=== PATIENT | male | born 1975 | race American Indian/Alaskan Native ===

== ENCOUNTER 2019-06-27 14:24 | Observation (INO) | payer SELFPAY ==
[~2019-06-27] VITALS: Ht 177.8 cm; Wt 85.4 kg
[2019-06-27] MEDS ORDERED: SODIUM CHLORIDE 0.9% 1000ML 1,000 ML IV STA (14:40)
[2019-06-27] MEDS ORDERED: PANTOPRAZOLE 40 MG 10ML VIAL IV STA (14:40)
[2019-06-27 14:58] LABS: BASOPHILS % 0.3 % (0.0-1.0); EOSINOPHILS # (AUTO) 0.1 (0.0-0.4); EOSINOPHILS % 0.6 % (0.0-6.0); HEMATOCRIT 41.1 % (38.2-49.6); HEMOGLOBIN 14.3 g/dL (14.0-18.0); LYMPHOCYTES # (AUTO) 2.7 (1.0-3.2); LYMPHOCYTES % 23.2 % (18.0-39.1); MEAN CORPUSCULAR HEMOGLOBIN 30.4 pg (28-32); MEAN CORPUSCULAR HGB CONC 34.8 g/dL (31-35); MEAN CORPUSCULAR VOLUME 87.4 fL (81-99); MONOCYTES # (AUTO) 0.8 (0.2-0.8); MONOCYTES % 7.1 % (4.4-11.3); NEUTROPHILS # (AUTO) 8.1 (2.1-6.9); NEUTROPHILS % 68.5 % (38.7-80.0); PLATELET COUNT 296 x10e3/uL (140-360); RED CELL DISTRIBUTION WIDTH 11.9 % (11.7-14.4)
[2019-06-27 15:12] LABS: INR 1.03; PROTHROMBIN TIME 14.1 seconds (11.9-14.5)
[2019-06-27 15:24] LABS: ALANINE AMINOTRANSFERASE 22 IU/L (0-55); ALBUMIN 3.8 g/dL (3.5-5.0); ALBUMIN/GLOBULIN RATIO 1.1 (0.8-2.0); ALKALINE PHOSPHATASE 93 IU/L (40-150); ANION GAP 16.7 mmol/L (8-16); BLOOD UREA NITROGEN 13 mg/dL (7-26); BUN/CREATININE RATIO 14 (6-25); CALCIUM 9.7 mg/dL (8.4-10.2); CARBON DIOXIDE 23 mmol/L (22-29); CHLORIDE 101 mmol/L (98-107); CREATINE KINASE 17 IU/L (30-200); EST GLOMERULAR FILTRATION RATE > 60 ML/MIN (60-); GLUCOSE 163 mg/dL (74-118); LIPASE 12 U/L (8-78); POTASSIUM 3.7 mmol/L (3.5-5.1); SODIUM 137 mmol/L (136-145)
[2019-06-27 15:25] LABS: BILIRUBIN,URINE SMALL (NEGATIVE); CLARITY,URINE CLEAR (CLEAR); COLOR,URINE YELLOW (YELLOW); KETONES,URINE 2+ (NEGATIVE); LEUKOCYTE ESTERASE ,URINE NEGATIVE (NEGATIVE); NITRITE,URINE NEGATIVE (NEGATIVE); PROTEIN,URINE DIPSTICK 2+ (NEGATIVE); URINE UROBILINOGEN 1 mg/dL (0.2 - 1)
[2019-06-27 15:36] LABS: RBC,URINE 0-5 /HPF (0-5)
[2019-06-27 15:37] LABS: BACTERIA,URINE FEW /HPF; EPITHELIAL CELLS,URINE FEW /LPF; HYALINE CASTS 0-1 (0-1); MUCUS,URINE FEW (RARE)
--- OUTSIDE RECORDS SUMMARY | 2019-06-27 15:52 | XMS REPORT ---
Author Author [facility] Address Unknown Phone Unavailable Care Team Providers Care Post Acute Care Nurse Practitioner Name Role Phone Unavailable Unavailable Problems This patient has no known problems. Allergies, Adverse Reactions, Alerts This patient has no known allergies or adverse reactions. Medications This patient has no known medications. Encounters Start Date/Time End Date/Time Encounter Type Admission Type Attending [facility] Care [facility] Care Department Encounter ID 2019-06-15 18:24:00 2019-06-15 18:24:00 Emergency E [facility] [id number] 2019-06-13 15:36:00 2019-06-13 15:36:00 Emergency E [id number]
[2019-06-27 15:53] LABS: AMPHETAMINES SCREEN,URINE NEGATIVE (NEGATIVE); BENZODIAZEPINES SCREEN,URINE NEGATIVE (NEGATIVE); PHENCYCLIDINE SCREEN,URINE NEGATIVE (NEGATIVE)
[2019-06-27] MEDS ORDERED: IOPAMIDOL 370 MG/ML 200 ML INFUS..BTL INJ ONE (17:20)
[2019-06-27] MEDS ORDERED: SODIUM CHLORIDE 0.9% 50ML 50 ML ONE (17:20)
--- NOTE | 2019-06-27 17:29 | Diagnostic Imaging Report ---
EXAM: CT Abdomen and Pelvis WITH intravenous contrast INDICATION: Abdominal pain, epigastric pain COMPARISON: None. TECHNIQUE: Abdomen and pelvis were scanned utilizing a multidetector helical scanner from the lung base to the pubic symphysis after administration of IV contrast. Coronal and sagittal reformations were obtained. Routine protocol was performed. Scan was performed during portal venous phase. IV CONTRAST: 100mL of Isovue 370 ORAL CONTRAST: Water RADIATION DOSE: Total DLP: 486.2 mGy*cm Dose modulation, iterative reconstruction, and/or weight based adjustment of the mA/kV was utilized to reduce the radiation dose to as low as reasonably achievable. FINDINGS: LOWER THORAX: Mild coronary artery atherosclerotic calcifications. HEPATOBILIARY: No focal liver lesion. No biliary ductal dilation. Unremarkable gallbladder. SPLEEN: No splenomegaly. PANCREAS: No focal masses or ductal dilatation. ADRENALS: No adrenal nodules. KIDNEYS/URETERS: No hydronephrosis, stones, or solid mass lesions. PELVIC ORGANS/BLADDER: Unremarkable. PERITONEUM / RETROPERITONEUM: No free air or fluid. LYMPH NODES: No lymphadenopathy. VESSELS: Mild scattered atherosclerotic calcifications of the nonaneurysmal bowel aorta and major branches. GI TRACT: No distention or wall thickening. BONES AND SOFT TISSUES: No acute osseous injury. No suspicious lytic or blastic lesions. IMPRESSION: No acute findings in the abdomen or pelvis. Signed by: Johann Leyva MD on 06/27/2019 5:26 PM
[2019-06-27] MEDS: SODIUM CHLORIDE 0.9% 1000ML 1,000 ML IV SCH ×2 (17:47→22:30)
[2019-06-27] MEDS ORDERED: ACETAMINOPHEN 325 MG TAB PO PRN (21:00)
[2019-06-27] MEDS ORDERED: DEXTROSE 50% SYRINGE 50 ML IV PRN (21:00)
[2019-06-27] MEDS ORDERED: PROMETHAZINE HC25 M1 PO (21:31)
[2019-06-27] MEDS ORDERED: ONDANSETRON HCL4 MG SL (21:31)
[2019-06-27] MEDS ORDERED: PANTOPRAZOLE SO40 MG PO (21:31)
[2019-06-27] MEDS ORDERED: FAMOTIDINE20 MG PO (21:31)
[2019-06-27] MEDS ORDERED: DICYCLOMINE HCL20 MG PO (21:31)
[2019-06-27] MEDS ORDERED: DICYCLOMINE HCL 20 MG TAB PO PRN (21:45)
[2019-06-27] MEDS ORDERED: ONDANSETRON HCL 4 MG ORAL DISINTEGRATING TAB SL PRN (21:45)
[2019-06-27] MEDS ORDERED: PROMETHAZINE HCL 25 MG TAB PO PRN (21:45)
[2019-06-27] MEDS: INSULIN REGULAR, HUMAN 100 UNIT/1 ML 3ML VIAL SQ SCH (22:25)
[2019-06-27] MEDS: LEVOFLOXACIN 500MG/D5W 100ML 100 ML IV SCH (22:30)
[2019-06-27] MEDS: FAMOTIDINE 20 MG TAB PO SCH (22:30)
[2019-06-28] VITALS (11 sets, daily range): BP systolic 145–170; BP diastolic 93–107
--- NOTE | 2019-06-28 00:01 | NUR ---
PATIENT ARRIVED VIA GURNEY TO FLOOR, AOX4, AT BEDSIDE, ORIENTED, STATED PREVIOUS FALL WITHIN 30 DAYS, FALL PRECAUTION IN PLACE, BED ALARM ACTIVATED, PATIENT ADVISED TO CALL DONT FALL, ORIENTED TO ROOM, STAFF AND PROCEDURES, CALL LIGHT WITHIN REACH
--- NOTE | 2019-06-28 02:00 | NUR ---
TELEMETRY REPORTING SINUS RHYTHM WITH PVC'S NOTED
[2019-06-28 05:35] LABS: BASOPHILS % 0.3 % (0.0-1.0); EOSINOPHILS # (AUTO) 0.1 (0.0-0.4); EOSINOPHILS % 0.9 % (0.0-6.0); HEMATOCRIT 39.8 % (38.2-49.6); HEMOGLOBIN 13.5 g/dL (14.0-18.0); LYMPHOCYTES # (AUTO) 3.1 (1.0-3.2); LYMPHOCYTES % 26.8 % (18.0-39.1); MEAN CORPUSCULAR HEMOGLOBIN 29.7 pg (28-32); MEAN CORPUSCULAR HGB CONC 33.9 g/dL (31-35); MEAN CORPUSCULAR VOLUME 87.7 fL (81-99); MONOCYTES % 8.4 % (4.4-11.3); NEUTROPHILS # (AUTO) 7.2 (2.1-6.9); NEUTROPHILS % 63.2 % (38.7-80.0); PLATELET COUNT 250 x10e3/uL (140-360); RED BLOOD COUNT 4.54 x10e6/uL (4.3-5.7)
[2019-06-28 06:00] LABS: CREATINE KINASE 18 IU/L (30-200)
--- NOTE | 2019-06-28 07:00 | NUR ---
SBAR report given to ruthie HAYWARD PATIENT SEEN SLEEPING, EASILY AWAKEN NO DISTRESS NOTED, WALKING ROUNDS COMPLETED
[2019-06-28] MEDS: INSULIN REGULAR, HUMAN 100 UNIT/1 ML 3ML VIAL SQ SCH ×4 (07:30→21:00)
[2019-06-28] MEDS: SODIUM CHLORIDE 0.9% 1000ML 1,000 ML IV SCH ×3 (08:32→23:32)
[2019-06-28] MEDS: FAMOTIDINE 20 MG TAB PO SCH ×2 (08:35→16:48)
[2019-06-28] MEDS: PANTOPRAZOLE SOD 40 MG TABEC PO SCH (08:35)
--- NOTE | 2019-06-28 11:53 | NUR ---
GAVE PACKET OF INFORMATION WITH COMM[facility]ITY [employer] FOR ASSISTANCE WITH LOW TO NO INCOME TO PATIENT. RESOURCES THAT PATIENT MAY BE ABLE TO FOLLOW UP UPON DISCHARGE. PT EDUCATED ON EACH RESOURCE AND UNDERSTANDING HOW TO FOLLOW UP TO SEE IF QUALIFIED FOR EACH RESOURCE.
--- NOTE | 2019-06-28 14:50 | NUR ---
Nutrition Screen Note RD Recommendation for Physician: - Add 1800 ADA to current diet Plan of Care: RD following, monitoring for tolerance and adequacy Nutrition reason for involvement: Nutrition Risk Trigger- MST2 Primary Diagnose(s): weakness, frequent PAC's PMH: No H&P available, pt reports being diabetic Ht: 70 in Wt: 187.25 lb, 191 lb 06/28 BMI: 26.9 kg/m2 IBW: [address] Assessment: (06/28) 44 YOM admitted for weakness and frequent PAC's. Pt seen today per MST screen. 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 Pt reports tolerating breakfast with some nausea, denies V/C/D. Pt reports UBW of 205# 2 months ago, pt weighed 191# at time of visit- no significant change noted. Skin intact. Chart reviewed. Labs and meds reviewed, currently on insulin. Will continue to monitor. Current Diet: Cardiac Malnutrition Evaluation (06/28/19) The patient does not meet criteria for a specified degree of malnutrition at this time. Will re-evaluate at follow-up as appropriate. Energy intake: <75% of estimated energy requirements for >7 days- decreased intake x 2 weeks Weight loss: Does not meet criteria- minor wt changes. Fat loss: none, ample skinfold thickness Muscle loss: none, shoulder round Supporting Evidence: Fluid accumulation: none Functional Status: not assessed Diet Education Needs Assessment: Diet education not indicated. Diet tolerance: tolerating po with some nausea Nutrition Care Level: low Signed: Katya Estrada RD, LD, [facility]
[2019-06-28 15:17] LABS: CREATINE KINASE MB 0.7 ng/mL (0-5.0)
--- NOTE | 2019-06-28 19:30 | NUR ---
BSSR RECEIVED FROM SPARKLE HAYWARD, PATIENT AOX3, NO DISTRESS NOTED, PATIENT SEEN LYING IN BED, BED IN LOWEST POSITION, AT BEDSIDE, NO C/O PAIN OR DISCOMFORT, REMAIN ON TELEMETRY FOR SAFETY, TELEMETRY REPORTING SR WITH PVC'S, CALL LIGHT WITHIN REACH
[2019-06-28] MEDS: LEVOFLOXACIN 500MG/D5W 100ML 100 ML IV SCH (21:36)
--- NOTE | 2019-06-28 21:40 | NUR ---
IV ABT THERAPY CONTINUED, IV SITE INTACT, PATENT, PATIENT TOLERATED WELL, NO REACTION NOTED
--- NOTE | 2019-06-28 23:03 | Consultation ---
DATE OF CONSULTATION: 06/28/2019 Cardiology Consult Note REASON FOR CONSULT: PVCs, generalized weakness. CHIEF COMPLAINT: Generalized weakness, nausea, vomiting. HISTORY OF PRESENT ILLNESS: The patient is a 44-year-old man, no prior history of heart issues, who presents with complaints of feeling weak, tired, and having nausea and vomiting. Denies any chest pain or shortness of breath, orthopnea, PND. REVIEW OF SYSTEMS: As above, otherwise negative. SOCIAL HISTORY: Does not smoke, drink, or abuse drugs. FAMILY HISTORY: Noncontributory. OUTPATIENT MEDICATIONS: Reviewed. ALLERGIES: DATA REVIEWED. NO KNOWN DRUG ALLERGIES. OBJECTIVE: VITAL SIGNS: Temperature afebrile, pulse 87, respiratory rate 14, blood pressure 153/99, and 98% on room air. GENERAL: A well developed, well nourished, in no acute distress. CARDIOVASCULAR: Regular rate and rhythm. No murmurs, rubs, or gallops. LUNGS: Clear to auscultation anteriorly. ABDOMEN: Soft, nontender, nondistended. NEURO AND PSYCH: Alert and oriented to person, place, and time. Normal affect. INPATIENT MEDICATIONS: Reviewed. LABORATORY DATA: Reviewed. Troponins negative x3. IMAGING DATA: Reviewed. CT scan of abdomen and pelvis shows no acute finding. TELEMETRY DATA: Reviewed, shows normal sinus rhythm with occasional PVCs. Echocardiogram reviewed shows normal LV function. No significant valvular abnormalities. ASSESSMENT AND PLAN: 1. Generalized weakness. 2. Premature ventricular contractions and premature atrial contractions. PLAN: From a cardiovascular standpoint, the patient is stable. He had some PACs and PVCs; however, this is not significant clinically and does not need to be treated and especially in the setting of normal LV function. Treat nausea and vomiting per primary team. We will continue to monitor on telemetry. The patient is okay to be discharged from a cardiovascular standpoint with palpation. Follow up as needed. MD MARIELENA Kaufman/HEMANTH /[id number]
[2019-06-29] VITALS: BP 142/96
[2019-06-29 00:20] VITALS: BP 142/96
[2019-06-29 04:00] VITALS: BP 156/80
[2019-06-29 05:12] VITALS: BP 156/80
--- NOTE | 2019-06-29 06:59 | NUR ---
BSSR GIVEN TO RN SPARKLE NO DISTRESS NOTED, PATIENT SEEN SLEEPING, CALL LIGHT WITHIN REACH
[2019-06-29 07:26] VITALS: BP 136/82
[2019-06-29 07:27] VITALS: BP 136/82
[2019-06-29] MEDS: INSULIN REGULAR, HUMAN 100 UNIT/1 ML 3ML VIAL SQ SCH (07:30)
[2019-06-29] MEDS: PANTOPRAZOLE SOD 40 MG TABEC PO SCH (08:26)
[2019-06-29] MEDS: SODIUM CHLORIDE 0.9% 1000ML 1,000 ML IV SCH (08:26)
[2019-06-29] MEDS: FAMOTIDINE 20 MG TAB PO SCH (08:26)
== END 2019-06-29 12:00 | disposition home or self-care (01) ==
LOC: ER 14:24 → ERHOLD 15:50 → IMCU 06-28 00:01
DX: R53.1 Weakness (principal); R10.11 Right upper quadrant pain; I49.1 Atrial premature depolarization; I49.3 Ventricular premature depolarization; E11.9 Type 2 diabetes mellitus without complications; Z79.84 Long term (current) use of oral hypoglycemic drugs; E86.0 Dehydration; R10.13 Epigastric pain; R10.12 Left upper quadrant pain
CPT/HCPCS: 36415 ×2; 74177; 80053; 80307; 81001; 82550 ×2; 82553 ×2; 82948 ×3; 83690; 83735; 84484 ×2; 85025 ×2; 85610; 85730; 93005; 93306; 99284; C9113; G0378 ×3; J1956 ×2; J7030 ×3; Q9967; S0164 ×2